=== PATIENT | female | born 1990 | race Two or more races ===

== ENCOUNTER 2018-07-22 14:29 | Outpatient (CLI) | payer OTHER | END 2018-07-22 15:27 | disposition home or self-care (01) | LOC: SONOGRAMA 14:29 | DX: M79.642 Pain in left hand (principal) ==

== ENCOUNTER → 2020-09-29 | Outpatient (CLI) | payer OTHER | END | disposition home or self-care (01) | LOC: PRENATAL 10:00 | PROVIDERS: ATTEND Obstetrics & Gynecology Maternal & Fetal Medicine | DX: O34.81 Maternal care for other abnormalities of pelvic organs, first trimester (principal); O36.80X1 Pregnancy with inconclusive fetal viability, fetus 1; Z36.89 Encounter for other specified antenatal screening; Z3A.13 13 weeks gestation of pregnancy ==

== ENCOUNTER 2022-05-13 08:45 | Inpatient (IN) | payer OTHER ==
[~2022-05-13] VITALS: Ht 157.5 cm; Wt 3.2 kg
[2022-05-15] MEDS ORDERED: PRENATAL CAPLE1 EAC1 PO (07:28)
== END 2022-05-17 13:58 | disposition home or self-care (01) | DRG 788 ==
LOC: O/R 05-15 06:49 → OB/GYN 05-15 08:45
PROVIDERS: ADMIT Obstetrics & Gynecology; ATTEND Obstetrics & Gynecology
PROC: 4A1HXCZ Monitoring of Products of Conception, Cardiac Rate, External Approach (ICD-10-PCS; 2022-05-15)
PROC: 10D00Z1 Extraction of Products of Conception, Low, Open Approach (ICD-10-PCS; principal; 2022-05-15 10:00)
DX: O34.211 Maternal care for low transverse scar from previous cesarean delivery (principal); Z3A.39 39 weeks gestation of pregnancy; Z37.0 Single live birth; Z20.822 Contact with and (suspected) exposure to COVID-19

== ENCOUNTER 2022-07-08 14:57 | Outpatient (CLI) | payer OTHER ==
[~2022-07-08 14:57] MED LIST: PRENATAL CAPLE1 EAC1 PO
== END 2022-07-08 15:10 | disposition home or self-care (01) ==
LOC: PPH VACUNA 14:57
PROVIDERS: ATTEND Emergency Medicine Pediatric Emergency Medicine
DX: Z23 Encounter for immunization (principal)